=== PATIENT | male | born 1985 | race Caucasian/White ===

== ENCOUNTER 2024-11-03 17:31 | Emergency (ER) | payer OTHER ==
[~2024-11-03] VITALS: Ht 177.8 cm; Wt 87.0 kg
[2024-11-03] MEDS ORDERED: KEPPRA1000 MG PO (17:52)
[2024-11-03] MEDS ORDERED: DEPAKOTE ER500 MG PO (17:53)
[2024-11-03] MEDS ORDERED: LORazepam 2 MG/ML VIAL IV ONE ×2 (18:00→19:00)
[2024-11-03 18:03] LABS: BASOPHILS 1.3 % (0.2-1.2); EOSINOPHILS 2.5 % (0.8-7.0); LYMPHOCYTES 33.3 % (21.8-53.1); MCH 29.9 PG (25.7-32.2); MCHC 35.3 g/dL (32.3-36.5); MCV 84.7 fL (79.0-92.2); MONOCYTES 10.4 % (5.3-12.2); NEUTROPHILS 52.3 % (34.0-67.9); RBC 4.65 M/uL (4.63-6.08)
[2024-11-03 18:18] LABS: ALT (SGPT) 24.0 U/L (14-59); AST (SGOT) 14.0 U/L (15-37); GLOMERULAR FILTRATION RATE,EST 86.0 mL/min (>60); PROTEIN, TOTAL 7.2 g/dL (6.4-8.2); UREA NITROGEN 12.0 mg/dL (7-18)
--- OUTSIDE RECORDS SUMMARY | 2024-11-03 18:46 | XMS ---
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 E.D. VISIT COUNT (12 MO.) 9 [facility] 6 [place] [facility] 4 [facility]. 3 [facility]. 1 ERICA Sanchez [address] TOTAL 25 NOTE: Visits indicate total known visits. ED/UCC VISIT TRACKING (12 MO.) 11/03/2024 17:33 [facility] [place] TYPE: Emergency COMPLAINT: - SEIZURE 10/18/2024 15:29 [facility] [place] TYPE: Emergency DIAGNOSES: - Unspecified convulsions - seizures 10/01/2024 12:00 [facility] TYPE: Emergency DIAGNOSES: - Epilepsy, unspecified, intractable, without status epilepticus - Unspecified abdominal pain - Constipation - Seizure (Adult - Prior Hx Of) 09/29/2024 21:03 [facility] [place] TYPE: Emergency DIAGNOSES: - Unspecified convulsions - seizure 09/23/2024 10:04 [facility] TYPE: Emergency DIAGNOSES: - Epilepsy, unspecified, not intractable, without status epilepticus - SEIZURES 09/20/2024 19:04 [facility] [place] TYPE: Emergency DIAGNOSES: - Headache, unspecified - Unspecified convulsions - SEIZURE 09/07/2024 08:51 [facility] [place] TYPE: Emergency DIAGNOSES: - Left lower quadrant pain - Unspecified complication of genitourinary prosthetic device, implant and graft, subsequent encounter - CATH PAIN 08/30/2024 08:20 [facility] [place] TYPE: Emergency DIAGNOSES: - Persons encountering health services in other specified circumstances - Catheter problem 08/29/2024 09:18 [facility] [place] TYPE: Emergency DIAGNOSES: - Other constipation - Other retention of urine - ABDOMINAL PAIN 08/26/2024 10:43 [facility] [place] TYPE: Emergency DIAGNOSES: - Constipation, unspecified - Diverticulitis of intestine, part unspecified, without perforation or abscess without bleeding - Enterovirus infection, unspecified - Other viral infections of unspecified site - ABDOMINAL PAIN 07/18/2024 12:02 [facility] [place] TYPE: Emergency DIAGNOSES: - Chest pain, unspecified - Unspecified convulsions - Unspecified convulsions - SEIZURE 07/02/2024 05:29 [facility] [place] TYPE: Emergency COMPLAINT: - F10.10 DIAGNOSES: - Alcohol abuse, uncomplicated - Alcohol induced acute pancreatitis without necrosis or infection - Alcohol use, unspecified with intoxication, unspecified - Constipation, unspecified - T/ DETOX 06/28/2024 17:15 [facility] J Luis [facility] [place] TYPE: Emergency COMPLAINT: - DETOX 06/27/2024 15[facility] COMPLAINT: - ETOH, NOT ALERT 06/19/2024 09:36 [facility] [place] TYPE: Emergency DIAGNOSES: - Alcohol abuse, uncomplicated - Epilepsy, unspecified, not intractable, without status epilepticus - Possible Seizure 06/08/2024 18:15 [facility] COMPLAINT: - CP, SOB 04/13/2024 12:53 [facility] [place] TYPE: Emergency COMPLAINT: - G40.919 DIAGNOSES: - Epilepsy, unspecified, intractable, without status epilepticus - Epilepsy, unspecified, not intractable, without status epilepticus - M6 SEIZURE 03/23/2024 21:52 [facility] [place] TYPE: Emergency COMPLAINT: - G40.909 DIAGNOSES: - Epilepsy, unspecified, not intractable, without status epilepticus - T/Seizure, pain, dizzy 02/17/2024 09:25 [facility] [place] TYPE: Emergency COMPLAINT: - R07.89 DIAGNOSES: - Other chest pain - t/cp 02/11/2024 12:16 [facility] [place] TYPE: Emergency COMPLAINT: - R56.9 DIAGNOSES: - Alcohol use, unspecified with withdrawal, unspecified - Unspecified convulsions - m30 Plus 5 More Visits INPATIENT VISIT TRACKING (12 MO.) 02/11/2024 12:16 [facility] [place] TYPE: Emergency COMPLAINT: - R56.9 DIAGNOSES: - Alcohol use, unspecified with withdrawal, unspecified - Unspecified convulsions 01/14/2024 08:08 [facility] [place] TYPE: Intensive Care DIAGNOSES: - Alcohol abuse, uncomplicated - Alcohol abuse, uncomplicated - Other acidosis 12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
[2024-11-03] MEDS ORDERED: ONDANSETRON 4 MG TAB ODT SL ONE (19:00)
[2024-11-03] MEDS ORDERED: HYDROCODONE/ACETA 5/325 TAB PO ONE (19:00)
[2024-11-03] MEDS ORDERED: HYDROCODONE/ACETA 5/325 TAB ONE (19:44)
[2024-11-03 20:30] VITALS: BP 118/82
[2024-11-03] MEDS ORDERED: LORazepam 1 MG HOME.PACK PO ONE (20:30)
== END 2024-11-03 20:29 | disposition home or self-care (01) ==
LOC: ED 17:31
PROVIDERS: Emergency Medicine
DX: R56.9 Unspecified convulsions (principal); I10 Essential (primary) hypertension; Z88.8 Allergy status to other drugs, medicaments and biological substances; Z79.899 Other long term (current) drug therapy
CPT/HCPCS: 36415; 70450; 71045; 80053; 85025; 96374; 96375; 96376; 99284-25; A9270; J1953; J2060

== ENCOUNTER 2024-11-23 20:41 | Emergency (ER) | payer OTHER ==
[~2024-11-23] VITALS: Ht 177.8 cm; Wt 84.0 kg
[~2024-11-23 20:41] MED LIST: DEPAKOTE ER500 MG PO; KEPPRA1000 MG PO
--- OUTSIDE RECORDS SUMMARY | 2024-11-23 20:48 | XMS ---
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 - 2 Visits in 30 Days - [facility] - 3 Facilities in 90 Days CARE PROVIDERS DORA NEWTON 10/10/2024-Current DANIELLE DODD PHONE: Unknown HOMAR INFANTE Nurse Practitioner: 11/26/2015-Current PHONE: Unknown -, [facility] Dentist: Retirement Actuary Current [place] PHONE: [phone] KATHY ASENCIO Residence Hall Director/Chief Commercial Officer Current [facility] ED PHONE: Unknown Saravanan has no Care Guidelines for this patient. [place] VISIT COUNT (12 MO.) 9 [facility] 6 [place] [facility] 4 [facility] H. 3 [facility] H. 2 [facility]. 1 [facility] 1 [facility]. TOTAL 26 NOTE: Visits indicate total known visits. ED/UCC VISIT TRACKING (12 MO.) 11/23/2024 20:42 [facility] [place] TYPE: Emergency COMPLAINT: - DIZZINESS 11/03/2024 17:33 [facility] [place] TYPE: Emergency COMPLAINT: - SEIZURE DIAGNOSES: - Allergy status to other drugs, medicaments and biological substances - Essential (primary) hypertension - Other skilled nursing (current) drug therapy - Unspecified convulsions 10/18/2024 15:29 [facility] [place] TYPE: Emergency DIAGNOSES: - Unspecified convulsions - seizures 10/01/2024 12:00 [facility] TYPE: Emergency DIAGNOSES: - Epilepsy, unspecified, intractable, without status epilepticus - Unspecified abdominal pain - Constipation - Seizure (Adult - Prior Hx Of) 09/29/2024 21:03 [employer] [facility] TYPE: Emergency DIAGNOSES: - Unspecified convulsions - seizure 09/23/2024 10:04 [employer] [place] TYPE: Emergency DIAGNOSES: - Epilepsy, unspecified, not intractable, without status epilepticus - SEIZURES 09/20/2024 19:04 [employer] [facility] [place] TYPE: Emergency DIAGNOSES: - Headache, unspecified - Unspecified convulsions - SEIZURE 09/07/2024 08:51 [employer] [facility] [place] TYPE: Emergency DIAGNOSES: - Left lower quadrant pain - Unspecified complication of genitourinary prosthetic device, implant and graft, subsequent encounter - CATH PAIN 08/30/2024 08:20 [facility] DIAGNOSES: - Persons encountering health services in other specified circumstances - Catheter problem 08/29/2024 09:18 [employer] [facility] [place] TYPE: Emergency DIAGNOSES: - Other constipation - Other retention of urine - ABDOMINAL PAIN 08/26/2024 10:43 [facility] [place] TYPE: Emergency DIAGNOSES: - Constipation, unspecified - Diverticulitis of intestine, part unspecified, without perforation or abscess without bleeding - Enterovirus infection, unspecified - Other viral infections of unspecified site - ABDOMINAL PAIN 07/18/2024 12:02 [facility] [place] TYPE: Emergency DIAGNOSES: - Chest pain, unspecified - Unspecified convulsions - Unspecified convulsions - SEIZURE 07/02/2024 05:29 [facility] [place] TYPE: Emergency COMPLAINT: - F10.10 DIAGNOSES: - Alcohol abuse, uncomplicated - Alcohol induced acute pancreatitis without necrosis or infection - Alcohol use, unspecified with intoxication, unspecified - Constipation, unspecified - T/ DETOX 06/28/2024 17:15 [facility] COMPLAINT: - DETOX 06/27/2024 15:11 [facility] COMPLAINT: - ETOH, NOT ALERT 06/19/2024 09:36 [facility] [place] TYPE: Emergency DIAGNOSES: - Alcohol abuse, uncomplicated - Epilepsy, unspecified, not intractable, without status epilepticus - Possible Seizure 06/08/2024 18:15 [facility] [place] TYPE: Emergency COMPLAINT: - CP, SOB 04/13/2024 12:53 [facility] [place] TYPE: Emergency COMPLAINT: - G40.919 DIAGNOSES: - Epilepsy, unspecified, intractable, without status epilepticus - Epilepsy, unspecified, not intractable, without status epilepticus - M6 SEIZURE 03/23/2024 21:52 [facility] [place] TYPE: Emergency COMPLAINT: - G40.909 DIAGNOSES: - Epilepsy, unspecified, not intractable, without status epilepticus - T/Seizure, pain, dizzy 02/17/2024 09:25 [facility] [place] TYPE: Emergency COMPLAINT: - R07.89 DIAGNOSES: - Other chest pain - t/cp Plus 6 More Visits INPATIENT VISIT TRACKING (12 MO.) 02/11/2024 12:16 [facility] [place] TYPE: Emergency COMPLAINT: - R56.9 DIAGNOSES: - Alcohol use, unspecified with withdrawal, unspecified - Unspecified convulsions 01/14/2024 08:[facility] DIAGNOSES: - Alcohol abuse, uncomplicated - Alcohol abuse, uncomplicated - Other acidosis 12/29/2023 03:00 [facility] [place] TYPE: Medical Surgical DIAGNOSES: - Alcohol use, unspecified with withdrawal, uncomplicated - Nicotine dependence, chewing tobacco, with unspecified nicotine-induced disorders - 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
[2024-11-23] MEDS ORDERED: METHYLPHENIDATE18 MG PO (21:25)
[2024-11-23] MEDS ORDERED: PAROXETINE CR12.5 MG PO (21:26)
[2024-11-23] MEDS ORDERED: BUSPIRONE HCL10 MG PO (21:26)
[2024-11-23] MEDS ORDERED: TRAZODONE HCL100 MG PO (21:26)
[2024-11-23] MEDS ORDERED: diazePAM 10 MG/2 ML SYR IV ONE (21:30)
[2024-11-23 21:46] LABS: BASOPHILS 1.4 % (0.2-1.2); EOSINOPHILS 2.5 % (0.8-7.0); LYMPHOCYTES 38.2 % (21.8-53.1); MCH 29.8 PG (25.7-32.2); MCHC 35.2 g/dL (32.3-36.5); MCV 84.5 fL (79.0-92.2); MONOCYTES 11.5 % (5.3-12.2); NEUTROPHILS 46.2 % (34.0-67.9); RBC 4.33 M/uL (4.63-6.08)
[2024-11-23 22:08] LABS: ALT (SGPT) 22.0 U/L (14-59); AST (SGOT) 13.0 U/L (15-37); GLOMERULAR FILTRATION RATE,EST 106.0 mL/min (>60); PROTEIN, TOTAL 7.0 g/dL (6.4-8.2); UREA NITROGEN 13.0 mg/dL (7-18)
[2024-11-23] MEDS ORDERED: OLANZapine 10 MG TABDIS PO ONE (22:15)
[2024-11-23] MEDS ORDERED: PROCHLORPERAZINE EDISYLATE 10 MG/2 ML VIAL IV ONE (22:30)
[2024-11-23 22:43] LABS: INFLUENZA B NAA NEGATIVE (NEGATIVE); RESPIRATORY SYNCYTIAL VIR NAA NEGATIVE (NEGATIVE)
[2024-11-23] MEDS ORDERED: MORPHINE SULFATE 4 MG/ML VIAL IV ONE (23:00)
[2024-11-23] MEDS ORDERED: KETOROLAC TROMETHAMINE 15 MG/ML VIAL IV ONE (23:15)
[2024-11-23] MEDS ORDERED: KEPPRA1000 MG PO (23:35)
[2024-11-23] MEDS ORDERED: HYDROCODON-ACE1 EA10 PO (23:39)
[2024-11-23] MEDS ORDERED: LORazepam 1 MG HOME.PACK PO ONE (23:45)
[2024-11-23] MEDS ORDERED: ONDANSETRON 4 MG HOME.PACK SL ONE (23:45)
[2024-11-24 00:23] VITALS: BP 121/86
--- NOTE | 2024-11-24 07:29 | EKG ---
[facility] [address] [facility] [place], [place] [address] Signed Sinus bradycardia Otherwise normal ECG No previous ECGs available Confirmed by SANDIE MACIEL MD ([id number]) on 11/24/2024 7:29:14 AM Electronically Signed By: SANDIE MACIEL 11/24/24 0729 PATIENT NAME: YANEDESTINI CHARLOTTE Electrocardiogram DATE OF : 87 PHYSICIAN: SANDIE MACIEL REPORT #: [id number] REPORT IS CONFIDENTIAL AND NOT TO BE RELEASED WITHOUT AUTHORIZATION
[2024-11-25 09:59] LABS: KEPPRA (LEVETIRACETAM) 12.2 ug/mL (10.0-40.0)
== END 2024-11-24 00:40 | disposition home or self-care (01) ==
LOC: ED 20:41
PROVIDERS: Family Medicine
DX: B34.9 Viral infection, unspecified (principal); G40.909 Epilepsy, unspecified, not intractable, without status epilepticus; I10 Essential (primary) hypertension; Z88.8 Allergy status to other drugs, medicaments and biological substances; Z79.899 Other long term (current) drug therapy
CPT/HCPCS: 36415; 70450; 71045; 80053; 80177; 84484; 85025; 87502; 93005; 93010; 96365; 96375; 99284-25; A9270; J0780; J1885; J1953; J2270; J2405; J3360; U0002

== ENCOUNTER 2025-03-01 09:30 | Day surgery (SDC) | payer OTHER ==
[~2025-03-01] VITALS: Ht 177.8 cm; Wt 93.0 kg
[~2025-03-01 09:30] MED LIST changes: +BUSPIRONE HCL10 MG PO; +COZAAR50 MG PO; +HYDROCODON-ACE1 EA10 PO; +IBLOOD GLUCOSE TEST STRIP 1 EA TEST VI PRN; +LACTATED RINGER'S 1,000 ML IV SCH; +LIDOCAINE HCL 1% 5 ML SDV INJ ONE; +METHYLPHENIDATE18 MG PO; +PAROXETINE CR12.5 MG PO; +TRAZODONE HCL100 MG PO
[2025-03-01 09:40] VITALS: BP 131/95
--- NOTE | 2025-03-01 09:55 | NUR ---
NO ONE WAITING TO BE CALLED. BLOOD DRAWN FOR CBC AND SENT TO LAB.
[2025-03-01 10:03] LABS: BASOPHILS 1.3 % (0.2-1.2); EOSINOPHILS 1.7 % (0.8-7.0); LYMPHOCYTES 27.1 % (21.8-53.1); MCH 30.3 PG (25.7-32.2); MCHC 35.1 g/dL (32.3-36.5); MCV 86.4 fL (79.0-92.2); MONOCYTES 10.7 % (5.3-12.2); NEUTROPHILS 59.1 % (34.0-67.9); RBC 5.51 M/uL (4.63-6.08)
[2025-03-01] MEDS ORDERED: LIDOCAINE HCL 2% 5 ML SDV ONE (10:11)
--- NOTE | 2025-03-01 11:24 | NUR ---
03/01/25 Moi4 Donna Noyola LE 1038: PT ARRIVES TO PACU NON REACTIVE. PT IS CONNECTED TO MONITORS. REPORT RECEIVED FROM REAL ESTATE ASSOCIATE ATTORNEY AND DISC SANDER. PT IS SNORING. LE 1043: REPORT RECEIVED FROM DR. VELAZQUEZ. PT IS AUDBILE PASSING GAS. LE 1044: PT STARTS COUGHING, BUT CONTINUES TO SLEEP AND SNORE. LE 1105: HEAD OF BED IS ELEVATED. SNORING IMPROVES/LESSEENS. STILL NON REACTIVE TO STIMULI. LE 1110: PT SPONTANEOUSLY WAKES UP. HE DENIES ANY PAIN OR NAUSEA. OXYGEN IS TURNED OFF. LE 1117: PT TURNS HIMSELF ONTO HIS BACK. LE 1120: PT IS GIVEN ICE WATER, TAKING SMALL SIPS.
[2025-03-01 11:31] VITALS: BP 113/83
== END 2025-03-01 11:38 | disposition home or self-care (01) ==
LOC: DS 09:30
PROVIDERS: Nurse Anesthetist, Certified Registered; ATTEND Surgery
PROC: 0DJD8ZZ Inspection of Lower Intestinal Tract, Via Natural or Artificial Opening Endoscopic (ICD-10-PCS; principal; 2025-03-01 10:35)
DX: K92.1 Melena (principal); K59.09 Other constipation; R10.32 Left lower quadrant pain; R10.9 Unspecified abdominal pain; K64.4 Residual hemorrhoidal skin tags; G40.909 Epilepsy, unspecified, not intractable, without status epilepticus; I10 Essential (primary) hypertension; Z88.8 Allergy status to other drugs, medicaments and biological substances
CPT/HCPCS: 00811; 36415; 85025; J2003; J2704; J7121